=== PATIENT | female | born 2000 | race Caucasian/White ===

== ENCOUNTER 2020-05-07 14:27 | Emergency (ER) | payer OTHER ==
[~2020-05-07] VITALS: Ht 170.2 cm; Wt 88.5 kg
[~2020-05-07 14:27] MED LIST: [UNRECOGNIZED DRUG - REMARK]
[2020-05-07 16:17] VITALS: BP 144/90
== END 2020-05-07 16:19 | disposition home or self-care (01) ==
LOC: M.ERS 14:27
DX: U07.1 COVID-19 (principal); F17.210 Nicotine dependence, cigarettes, uncomplicated